=== PATIENT | male | born 1990 | race Caucasian/White ===

== ENCOUNTER 2016-10-26 13:08 | Emergency (ER) | payer SELFPAY ==
[~2016-10-26] VITALS: Ht 165.1 cm; Wt 89.0 kg
[2016-10-26 13:13] VITALS: Ht 165.1 cm; Wt 89.0 kg
[2016-10-26] MEDS ORDERED: KETOROLAC 30 MG INJ IV STA (15:15)
[2016-10-26] MEDS ORDERED: SOD CHLORIDE 0.9% 1,000 ML IV STA (15:15)
--- NOTE | 2016-10-26 16:06 | RADRPT ---
PROCEDURE: Retroperitoneal US. CLINICAL INDICATION: history of kidney stone, right flank pain TECHNIQUE: Multiple sonographic images of the retroperitoneum were obtained. The images were revi ewed on a PACS workstation. COMPARISON: No prior studies are available for comparison. FINDINGS: The right kidney measures 9.8 x 6.6 x 5.1 cm. The left kidney measures 9.5 x 6.0 x 4.9 cm. The renal parenchymal echotexture is normal. There is no hydronephrosis. There is no focal renal mass or calcification seen. The bladder is grossly unremarkable. IMPRESSION: Unremarkable retroperitoneal sonogram. No renal calculi are identified. No hydronephrosis bilaterally. RPTAT: EE Physician Javier Date Time Electronically viewed and signed by Physician Javier on 10/26/2016 16:06 /
[2016-10-26 16:14] LABS: ADD SCAN DIFF NO
[2016-10-26 16:16] LABS: BASOPHILS % 0.5 % (0.0-2.0); EOSINOPHILS # 0.2 10^3/ul (0.0-0.5); EOSINOPHILS % 1.9 % (0.0-7.0); HEMATOCRIT 47.5 % (42.0-52.0); HEMOGLOBIN 15.4 g/dl (14.0-18.0); LYMPHOCYTES # 2.7 10^3/ul (0.8-2.9); LYMPHOCYTES % 30.3 % (15.0-51.0); MEAN CORPUSCULAR HEMOGLOBIN 26.7 pg (29.0-33.0); MEAN CORPUSCULAR HGB CONC 32.4 g/dl (32.0-37.0); MEAN CORPUSCULAR VOLUME 82.5 fl (82.0-101.0); MEAN PLATELET VOLUME 10.9 fl (7.4-10.4); MONOCYTE # 0.8 10^3/ul (0.3-0.9); MONOCYTES % 9.5 % (0.0-11.0); NEUTROPHIL # 5.1 10^3/ul (1.6-7.5); NEUTROPHILS % 57.5 % (39.0-77.0); PLATELET COUNT 260 10^3/UL (140-415); RED BLOOD COUNT 5.76 10^6/ul (4.70-6.10); RED CELL DISTRIBUTION WIDTH 13.7 % (11.5-14.5); WHITE BLOOD COUNT 8.8 10^3/ul (4.8-10.8)
[2016-10-26 16:34] LABS: ALBUMIN 4.3 g/dl (3.3-4.9)
[2016-10-26 16:35] LABS: POTASSIUM 4.4 mmol/L (3.5-5.1)
[2016-10-26 16:37] LABS: ALBUMIN/GLOBULIN RATIO 1.3; BILIRUBIN,INDIRECT 0.2 mg/dl (0-1.1); BILIRUBIN,TOTAL 0.2 mg/dl (0.2-1.3); CREATININE 0.89 mg/dl (0.61-1.24); TOTAL PROTEIN 7.6 g/dl (6.1-8.1)
[2016-10-26 16:38] LABS: CALCIUM 9.5 mg/dl (8.4-10.2)
--- NOTE | 2016-10-26 17:11 | RADRPT ---
PROCEDURE: XR Lumbar Spine. CLINICAL INDICATION: Low back pain. TECHNIQUE: AP, cone-down lateral, and lateral views of the lumbar spine were obtained. COMPARISON: None. FINDINGS: Mineralization is within normal limits. Vertebral bodies are normal in height. No fracture is iden tified. Lumbar lordosis is preserved. No vertebral subluxation is seen. The intervertebral discs are normal in height. Trace anterior spondylosis at L4-5 is noted Paraspinal contours are unremarkab le. RPTAT:HJJR IMPRESSION: Trace anterior L4-5 spondylosis, otherwise unremarkable three view series of the lumbar spine. Physician Waleska Date Time Electronically viewed and signed by Physician Waleska on 10/26/2016 17:11 JR/
[2016-10-26] MEDS ORDERED: NAPR-260 PO (18:03)
[2016-10-26 18:10] LABS: ADD UMIC YES; URINE BILIRUBIN (Dip) NEGATIVE (NEGATIVE); URINE BLOOD (Dip) 1+ (NEGATIVE); URINE COLOR LT. YELLOW (YELLOW); URINE GLUCOSE (Dip) NEGATIVE (NEGATIVE); URINE KETONES (Dip) NEGATIVE (NEGATIVE); URINE LEUKOCYTE ESTERASE (Dip) NEGATIVE (NEGATIVE); URINE NITRITE (Dip) NEGATIVE (NEGATIVE); URINE TOTAL PROTEIN (Dip) NEGATIVE (NEGATIVE); URINE UROBILINOGEN (Dip) 0.2 E.U./dL (0.1-1.0)
--- NOTE | 2016-10-26 18:16 | ERD ---
ER Documentation Chief Complaint Date/Time DATE: 10/26/16 TIME: 18:11 Chief Complaint has low back pain dysuria and pain shoots down legs HPI 26-year-old male with a past medical history of nephrolithiasis presents to the ED complaining of lower back pain, dysuria that started intermittently it days ago. Reports that sitting makes it worse. Denies any fever, chills, abdominal pain, nausea, vomiting, diarrhea, wheezing. Patient states that he has had a previous appendectomy 10 years ago. Denies any smoking, alcohol use, drug use. Denies any scrotal pain, urgency, frequency. ROS All systems reviewed and are negative except as per history of present illness. Medications Home Meds Active Scripts Naproxen* (Naprosyn*) 500 Mg Tablet, 500 MG PO BID Y for PAIN AND/OR INFLAMMATION, #30 TAB Prov:TERRA ORSE PA-C 10/26/16 Allergies Allergies: Coded Allergies: No Known Allergy (Unverified , 10/26/16) PMhx/Soc Medical and Surgical Hx: pt denies Medical Hx History of Surgery: Yes (appendectomy) Hx Alcohol Use: No Hx Substance Use: No Hx Tobacco Use: No Physical Exam Vitals Vital Signs Date Time Temp Pulse Resp B/P Pulse Ox O2 Delivery O2 Flow Rate FiO2 10/26/16 13:13 98.3 102 18 132/80 98 Physical Exam Const: Nzo-[id number], well-nourished. In no acute distress. Head: Atraumatic, normocephalic Eyes: Normal Conjunctiva without injection. No purulent discharge. ENT: Normal external ear, nose. Moist oropharynx without tonsillar exudates. Non -erythematous pharynx. Uvula midline. No drooling. No trismus. Neck: No cervical midline tenderness. Full range of motion. No meningismus. No cervical lymphadenopathy. No JVD. Resp: Clear to auscultation bilaterally. No wheezing, rhonchi, rales, or crackles. No accessory muscle use. No retractions. Cardio: Regular rate and rhythm. No murmurs, rubs or gallops. Abd: Soft, nontender, non distended. Normal bowel sounds. No palpable masses. No rebound tenderness. No guarding. Negative McBurney's point. Negative psoas sign. Negative obturator sign. Skin: No petechiae or rashes Back: Tenderness to the L4-L5 midline. Range of motion due to pain. Bilateral flank tenderness. No CVA tenderness. Ext: No cyanosis, or edema. Neur: Awake and alert. Normal gait. Normal coordination. Psych: Normal Mood and Affect Result Diagram: 10/26/16 1600 10/26/16 1600 Results 24 hrs Laboratory Tests Test 10/26/16 16:00 Alanine Aminotransferase (ALT/SGPT) 52IU/L Albumin 4.3g/dl Albumin/Globulin Ratio 1.30 Alkaline Phosphatase 87IU/L Anion Gap 15 Aspartate Amino Transf (AST/SGOT) 37IU/L Basophils # 0.010^3/ul Basophils % 0.5% Blood Urea Nitrogen 17mg/dl Calcium Level 9.5mg/dl Carbon Dioxide Level 31mmol/L Chloride Level 101mmol/L Creatinine 0.89mg/dl Direct Bilirubin 0.00mg/dl Eosinophils # 0.210^3/ul Eosinophils % 1.9% Globulin 3.30g/dl Glucose Level 92mg/dl Hematocrit 47.5% Hemoglobin 15.4g/dl Indirect Bilirubin 0.2mg/dl Lipase 31U/L Lymphocytes # 2.710^3/ul Lymphocytes % 30.3% Mean Corpuscular Hemoglobin 26.7pg Mean Corpuscular Hemoglobin Concent 32.4g/dl Mean Corpuscular Volume 82.5fl Mean Platelet Volume 10.9fl Monocytes # 0.810^3/ul Monocytes % 9.5% Neutrophils # 5.110^3/ul Neutrophils % 57.5% Nucleated Red Blood Cells # 0.010^3/ul Nucleated Red Blood Cells % 0.0/100WBC Platelet Count 52507^3/UL Potassium Level 4.4mmol/L Red Blood Count 5.7610^6/ul Red Cell Distribution Width 13.7% Sodium Level 143mmol/L Total Bilirubin 0.2mg/dl Total Protein 7.6g/dl White Blood Count 8.810^3/ul Current Medications Medications (Trade) Dose Ordered Sig/Julissa Route PRN Reason Start Time Stop Time Status Last Admin Dose Admin Sodium Chloride (NS) 1,000 ml @ 1,000 mls/hr Q1H STAT IV 10/26/16 15:15 10/26/16 16:14 DC 3/15/17 16:03 Ketorolac Tromethamine (Toradol) 30 mg ONCE STAT IV 10/26/16 15:15 10/26/16 15:20 DC 10/26/16 16:03 Procedures/MDM This is a 26-year-old male with a past medical history of nephrolithiasis presents to the ED complaining of lower back pain and dysuria. Patient is afebrile and nontoxic-appearing. Patient has normal vital signs. Patient was further worked up with CBC, CMP, lipase, UA, renal ultrasound, lumbar x-ray. Patient's pain and symptoms have improved after treatment with 1 L of normal saline, 30 mg IV ketorolac. CBC: No leukocytosis. No e/o of systemic infection. No e/o anemia. CMP: No e/o severe acidosis, alkalosis, renal failure, diabetic ketoacidosis, liver disease Lipase within normal limits. PROCEDURE: XR Lumbar Spine. CLINICAL INDICATION: Low back pain. TECHNIQUE: AP, cone-down lateral, and lateral views of the lumbar spine were obtained. COMPARISON: None. FINDINGS: Mineralization is within normal limits. Vertebral bodies are normal in height. No fracture is identified. Lumbar lordosis is preserved. No vertebral subluxation is seen. The intervertebral discs are normal in height. Trace anterior spondylosis at L4-5 is noted Paraspinal contours are unremarkable. RPTAT:HJJR IMPRESSION: Trace anterior L4-5 spondylosis, otherwise unremarkable three view series of the lumbar spine. PROCEDURE: Retroperitoneal US. CLINICAL INDICATION: history of kidney stone, right flank pain TECHNIQUE: Multiple sonographic images of the retroperitoneum were obtained. The images were reviewed on a PACS workstation. COMPARISON: No prior studies are available for comparison. FINDINGS: The right kidney measures 9.8 x 6.6 x 5.1 cm. The left kidney measures 9.5 x 6.0 x 4.9 cm. The renal parenchymal echotexture is normal. There is no hydronephrosis. There is no focal renal mass or calcification seen. The bladder is grossly unremarkable. IMPRESSION: Unremarkable retroperitoneal sonogram. No renal calculi are identified. No hydronephrosis bilaterally. Differential diagnoses include pain deriving from the anterior L5 spondylosis. Low suspicion for septic renal stone and nephrolithiasis. A differential diagnosis considered includes but is not limited to gastritis, GERD, peptic ulcer disease, cholecystitis, choledocholithiasis, cholangitis, pancreatitis, appendicitis, bowel obstruction, ileus, volvulus, nephrolithiasis, pyelonephritis, hepatitis, perforated viscus, diverticulitis, abdominal hernia, acute abdomen, mesenteric ischemia or other emergent conditions. Patient is ambulating here in the ED without difficulty. Denies saddle anesthesia, numbness or tingling, urine or bowel incontinence, weakness. Low suspicion for cauda equina syndrome, cord compression, nephrolithiasis, aortic aneurysm, aortic dissection, epidural abscess, spinal hematoma, malignancy, pyelonephritis , spinal stenosis, or other emergent conditions. Discharge medications: Naproxen Pending the urinalysis, this patient has been signed off to my colleague, Christy Valencia PA-C. Departure Diagnosis: Primary Impression: Back pain Back pain location: low back pain Chronicity: unspecified Back pain laterality: unspecified Sciatica presence: without sciatica Qualified Code: M54.5 - Low back pain without sciatica, unspecified back pain laterality, unspecified chronicity Additional Impression: Dysuria Condition: Stable Patient Instructions: Back Pain (Acute Or Chronic) Referrals: [facility] [place] YOU HAVE RECEIVED A MEDICAL SCREENING EXAM AND THE RESULTS INDICATE THAT YOU DO NOT HAVE A CONDITION THAT REQUIRES URGENT TREATMENT IN THE EMERGENCY DEPARTMENT. FURTHER EVALUATION AND TREATMENT OF YOUR CONDITION CAN WAIT UNTIL YOU ARE SEEN IN YOUR DOCTORS OFFICE WITHIN THE NEXT 1-2 DAYS. IT IS YOUR RESPONSIBILITY TO MAKE AN APPOINTMENT FOR FOLOW-UP CARE. IF YOU HAVE A PRIMARY DOCTOR --you should call your primary doctor and schedule and appointment IF YOU DO NOT HAVE A PRIMARY DOCTOR YOU CAN CALL OUR PHYSICIAN REFERRAL HOTLINE AT . IF YOU CAN NOT AFFORD TO SEE A PHYSICIAN YOU CAN CHOSE FROM THE FOLLOWING [facility] INSTITUTIONS: [facility] [address] [place] [address] [facility] [address] [place] [address] [facility] [address] [place] [address] [facility] ([facility]) Usted se ramírez hecho un examen mdico de control que le indica que no est en gisselle condicin que requiera tratamiento urgente en el Departamento de Emergencia. Un estudio ms profundo y el tratamiento de carrillo condicin pueden esperar sin ningn riesgo hasta que usted sea atendida/o en el consultorio de carrillo mdico o gisselle cl claire. Es responsabilidad suya arreglar gisselle michelle para el seguimiento del dylan. MANEJO DE CONDICIONES NO URGENTES EN EL FUTURO 1) Si usted tiene un mdico de atencin primaria: Usted debera llamar a carrillo mdico de atencin primaria antes de venir al departamento de emergencia. Despus de las horas de consultorio, carrillo doctor o carrillo asociado/a est disponible por telfono. El mdico o enfermero de sathish en el servicio telefnico puede asesorarle por evangelina medio para atender el problema, o dylan contrario se puede programar gisselle michelle. 2) Si usted no tiene un mdico de atencin primaria: Llame al mdico o clnica de referencia que aparece abajo kalyan las horas de consultorio para hacer gisselle michelle para que le vean. CLINICAS: [facility] [phone] [address] [facility] [phone] [facility] [phone] [facility]. [facility] [phone] [facility]. [place] [phone] [facility]. [phone] [address] [facility]. [facility] () Usted se ramírez hecho un examen mdico de control que le indica que no est en gisselle condicin que requiera tratamiento urgente en el Departamento de Emergencia. Un estudio ms profundo y el tratamiento de carrillo condicin pueden esperar sin ningn riesgo hasta que usted sea atendida/o en el consultorio de carrillo mdico o gisselle cl claire. Es responsabilidad suya arreglar gisselle michelle para el seguimiento del dylan. MANEJO DE CONDICIONES NO URGENTES EN EL FUTURO 1) Si usted tiene un mdico de atencin primaria: Usted debera llamar a carrillo mdico de atencin primaria antes de venir al departamento de emergencia. Despus de las horas de consultorio, carrillo doctor o carrillo asociado/a est disponible por telfono. El mdico o enfermero de sathish en el servicio telefnico puede asesorarle por evangelina medio para atender el problema, o dylan contrario se puede programar gisselle michelle. 2) Si usted no tiene un mdico de atencin primaria: Llame al mdico o condado institucions de referencia que aparece abajo kalyan las horas de consultorio para hacer gisselle michelle para que le vean. SI USTED NO PUEDE PAGAR PARA DO UN MEDICO puede ir a: [facility] [address] [place], [place] [id number] [place] [address] [address] [place] [address] [facility] [address] [place] [address] PARA [facility] [address] [place], [place] [id number] Additional Instructions: Llame al doctor MAANA y bib gisselle MICHELLE PARA DENTRO DE 1-2 GOMEZ.Dgale a la secretaria que nosotros le instruimos hacer esta michelle.Avise o llame si carrillo condicin se empeora antes de la michelle. Regresa aqui si peor o no mejor. TERRA ROSE PA-C Oct 26, 2016 18:16
[2016-10-26 18:18] LABS: URINE RBCS 0-2 /HPF (0)
== END 2016-10-26 18:35 | disposition home or self-care (01) ==
LOC: FTE 13:08
DX: M54.5 Low back pain (principal); R30.0 Dysuria
CPT/HCPCS: 36415; 72100; 76775; 80053; 81001; 83690; 85025; 96374; 99285; J1885; J7030; 81003